=== PATIENT | female | born 1975 | race Caucasian/White ===

== ENCOUNTER 2021-08-19 09:50 | Outpatient (CLI) | payer BC | END 2021-08-19 09:51 | disposition home or self-care (01) | LOC: BICMAMMO 09:50 | PROVIDERS: ATTEND Obstetrics & Gynecology | DX: Z12.31 Encounter for screening mammogram for malignant neoplasm of breast (principal); Z98.82 Breast implant status | CPT/HCPCS: 77063; 77067 ==

== ENCOUNTER 2024-05-01 11:38 | Observation (INO) | payer OTHER ==
[~2024-05-01 11:38] MED LIST: Iopamidol-370 76% 500 ML MDV (1 ML CHARGE) ONE
[2024-05-01 12:40] LABS: #Basophils 0.07 10x3/uL (0.0-0.2); %Basophils 1.2 % (0.0-1.0); %Lymphocytes 32.4 % (21.0-51.0); %Neutrophils 60.2 % (42.0-75.0); Hematocrit 44.6 % (36.0-47.0); Hemoglobin 15.2 g/dL (12.0-16.0); Mean Corpuscular HGB CONC 34.1 g/dL (32.0-36.0); Mean Corpuscular Hemoglobin 31.4 pg (27.0-31.0); Mean Corpuscular Volume 92.1 fL (78.0-98.0); Mean Platelet Volume 11.7 fL (7.4-10.4); Platelet Count 171 10x3/uL (130-400); RBC Distribution Width 12.1 % (11.5-14.5); Red Blood Cell (RBC) Count 4.84 mill/uL (4.20-5.40)
[2024-05-01 12:41] LABS: Actual Bicarbonate (HCO3v) 26.6 mEq/L (22-28); Base Excess -0.7 mEq/L (-2.0 to +3.0); Calcium, Ionized (venous) 1.39 mmol/L (1.16-1.32); Chloride (VBG) 102 mmol/L (98-106); Hematocrit-VBG 45 % (36.0-47.0); Hemoglobin (Hb) 15.4 g/dL (11.7-16.0); Potassium (VBG) 4.09 mmol/L (3.70-5.30); Sodium 141 mmol/L (133-146); pH (venous) 7.308 (7.32-7.43)
[2024-05-01 12:54] LABS: PTT 27.9 sec (22.9-36.1); Prothrombin Time 12.7 sec (12.0-14.7)
[2024-05-01 13:22] LABS: Troponin I Less than 0.010 ng/mL (< 0.028)
[2024-05-01 14:14] LABS: ALT (SGPT) 19 U/L (8-55); AST (SGOT) 22 U/L (5-34); Albumin 4.6 g/dL (3.5-5.0); Alkaline Phosphatase 75 U/L (40-110); Anion Gap 16 mmol/L (10-20); BUN (Urea Nitrogen) 20 mg/dL (7.0-18.7); Bilirubin, Total 0.4 mg/dL (0.2-1.2); Calc. Creatinine Clearance 0 mL/min (70-130); Calcium 10.9 mg/dL (7.8-10.44); Carbon Dioxide 23 mmol/L (22-29); Chloride 107 mmol/L (98-107); Estimated GFR 91; Globulin 2.9 g/dL (2.4-3.5); Glucose 98 mg/dL (70-105); Potassium 4.2 mmol/L (3.5-5.1); Protein, Total 7.5 g/dL (6.0-8.3); Sodium 142 mmol/L (136-145)
[2024-05-01] MEDS ORDERED: Enoxaparin 60 MG (0.6 mL) SYRINGE ONE (16:26)
[2024-05-01] MEDS ORDERED: Metoclopramide HCl 10 MG (2 mL) VIAL ONE (17:01)
[2024-05-01] MEDS ORDERED: Acetaminophen 325 MG TAB PO PRN (18:52)
[2024-05-01] MEDS ORDERED: Ondansetron ODT 4 MG TAB PO PRN (18:52)
[2024-05-01] MEDS ORDERED: Ondansetron PF 4 MG/2 ML Vial IVP PRN (18:52)
[2024-05-01] MEDS ORDERED: Acetaminophen 650 MG Suppository PR PRN (18:52)
[2024-05-01] MEDS ORDERED: Ipratropium/Albuterol 3 ML NEB NEB PRN (19:07)
[2024-05-01] MEDS: Famotidine 20 MG TAB PO SCH (21:00)
[2024-05-01 23:50] LABS: Actual Bicarbonate (HCO3v) 24.2 mEq/L (22-28); Base Excess -2.5 mEq/L (-2.0 to +3.0); Calcium, Ionized (venous) 1.33 mmol/L (1.16-1.32); Chloride (VBG) 107 mmol/L (98-106); Hematocrit-VBG 41 % (36.0-47.0); Potassium (VBG) 4.11 mmol/L (3.70-5.30); Sodium 141 mmol/L (133-146)
[2024-05-02] MEDS: Melatonin 3 MG TAB PO PRN (00:45)
[2024-05-02 01:40] LABS: Influenza A by NAA Not Detected (NotDetected); Influenza B by NAA Not Detected (NotDetected); SARS-CoV-2 NAA Rapid Test Not Detected (NotDetected)
[2024-05-02 05:17] LABS: #Basophils 0.04 10x3/uL (0.0-0.2); %Basophils 0.9 % (0.0-1.0); %Eosinophils 2.2 % (0.0-10.0); %Lymphocytes 50.8 % (21.0-51.0); %Monocytes 8.2 % (0.0-10.0); %Neutrophils 37.9 % (42.0-75.0); Hematocrit 38.3 % (36.0-47.0); Hemoglobin 12.5 g/dL (12.0-16.0); Mean Corpuscular HGB CONC 32.6 g/dL (32.0-36.0); Mean Corpuscular Hemoglobin 30.9 pg (27.0-31.0); Mean Corpuscular Volume 94.6 fL (78.0-98.0); Mean Platelet Volume 11.7 fL (7.4-10.4); Platelet Count 146 10x3/uL (130-400); RBC Distribution Width 12.1 % (11.5-14.5); Red Blood Cell (RBC) Count 4.05 mill/uL (4.20-5.40)
[2024-05-02 05:50] LABS: Anion Gap 11 mmol/L (10-20); BUN (Urea Nitrogen) 11 mg/dL (7.0-18.7); Calc. Creatinine Clearance 0 mL/min (70-130); Calcium 9.9 mg/dL (7.8-10.44); Carbon Dioxide 22 mmol/L (22-29); Chloride 112 mmol/L (98-107); Estimated GFR 110; Glucose 84 mg/dL (70-105); Potassium 4.1 mmol/L (3.5-5.1); Sodium 141 mmol/L (136-145)
[2024-05-02] MEDS ORDERED: Apixaban 5 MG TAB PO SCH (09:00)
[2024-05-02] MEDS: Apixaban 5 MG TAB PO SCH (10:00)
[2024-05-02 15:34] VITALS: BP 109/64; TEMP 97.5
== END 2024-05-02 18:40 | disposition home or self-care (01) ==
LOC: ERS 11:38 → 2NO 18:28 → OBSVTOIN 18:28 → INTOOBSV 18:28
PROVIDERS: ADMIT Internal Medicine; ATTEND Internal Medicine
DX: R09.02 Hypoxemia (principal); D68.51 Activated protein C resistance; R20.0 Anesthesia of skin; Z86.718 Personal history of other venous thrombosis and embolism; Z86.711 Personal history of pulmonary embolism; Z88.5 Allergy status to narcotic agent; Z79.01 Long term (current) use of anticoagulants; Z98.890 Other specified postprocedural states; Z90.710 Acquired absence of both cervix and uterus; Z90.49 Acquired absence of other specified parts of digestive tract; Z98.82 Breast implant status
CPT/HCPCS: 36415; 71045; 71275; 80048; 80053; 82805; 83880; 84443; 84484; 85025; 85610; 85730; 93005; 96372; 96374; J1650; J2765; Q9967